=== PATIENT | male | born 1980 | race Caucasian/White ===

== ENCOUNTER 2019-05-01 | Day surgery (SDC) | payer OTHER ==
[~2019-05-01] MED LIST: ALBUTEROL SUL0.083 % IN; AMOXICILLIN500 MG PO; BENZTROPINE1 MG PO; CYCLOBENZAPR10 MG PO; MOTRIN800 MG PO; NEXIUM20 M1 OR; PRAVASTATIN SOD20 MG PO; PROVENTIL0.083 % IN; RANITIDINE300 MG PO; RISPERIDONE2 MG PO
[2019-05-01] MEDS ORDERED: PANTOPRAZOLE SO40 M1 PO (08:58)
[2019-09-08] MEDS ORDERED: PROVENTIL HFA IN (08:53)
== END 2019-05-01 09:36 | disposition home or self-care (01) ==
DX: K20.8 Other esophagitis (principal); K44.9 Diaphragmatic hernia without obstruction or gangrene; K29.70 Gastritis, unspecified, without bleeding; K29.80 Duodenitis without bleeding; F17.210 Nicotine dependence, cigarettes, uncomplicated; Z79.899 Other long term (current) drug therapy

== ENCOUNTER 2019-09-16 07:15 | Day surgery (SDC) | payer OTHER ==
[~2019-09-16] VITALS: Ht 177.8 cm; Wt 104.3 kg
[~2019-09-16 07:15] MED LIST changes: +PANTOPRAZOLE SO40 M1 PO; +PROVENTIL HFA IN
[2019-09-16 09:59] VITALS: BP 126/90
== END 2019-09-16 10:13 | disposition home or self-care (01) ==
LOC: ORM 07:15
PROVIDERS: ATTEND Surgery
DX: K21.0 Gastro-esophageal reflux disease with esophagitis (principal); K29.80 Duodenitis without bleeding; K29.70 Gastritis, unspecified, without bleeding; K44.9 Diaphragmatic hernia without obstruction or gangrene; F17.200 Nicotine dependence, unspecified, uncomplicated; Z79.899 Other long term (current) drug therapy; Z11.59 Encounter for screening for other viral diseases

== ENCOUNTER 2020-01-06 06:51 | Day surgery (SDC) | payer OTHER ==
[~2020-01-06] VITALS: Ht 177.8 cm; Wt 108.9 kg
[2020-01-06 08:55] VITALS: BP 119/79
== END 2020-01-06 09:00 | disposition home or self-care (01) ==
LOC: ENDO 06:51 → ORM 08:00 → ENDO 08:40
PROVIDERS: ATTEND Surgery
DX: K21.00 Gastro-esophageal reflux disease with esophagitis, without bleeding (principal); K44.9 Diaphragmatic hernia without obstruction or gangrene; K29.70 Gastritis, unspecified, without bleeding; J45.909 Unspecified asthma, uncomplicated; Z20.828 Contact with and (suspected) exposure to other viral communicable diseases; Z79.899 Other long term (current) drug therapy